=== PATIENT | female | born 1960 | race Caucasian/White ===

== ENCOUNTER 2021-03-08 07:56 | Outpatient (REF) | payer BC, SELFPAY ==
--- NOTE | ~2021-03-08 | MM_ITS ---
EXAMINATION: MM SCREENING DIGITAL BREAST TOMOSYNTHESIS, BILATERAL CLINICAL INFORMATION: Screening. Asymptomatic. Family history breast cancer, mother. The lifetime risk of breast cancer based on the Tyrer-Cuzick Model is 33%. COMPARISON: Mammography: 02/01/2020, 01/26/2019, 12/07/2017 TECHNIQUE: Digital breast tomosynthesis is performed in both the craniocaudal and mediolateral oblique views along with computer-aided detection (CAD). Synthesized 2D images are generated from the tomosynthesis. FINDINGS: The breasts are extremely dense, which lowers the sensitivity of mammography (ACR BI-RADS breast composition Category d). There are no significant masses, abnormal calcifications, or other abnormalities. Parenchymal pattern is similar to prior studies. The axilla and skin contours are unremarkable. MM/MM tomosynthesis screening BI IMPRESSION: No mammographic evidence of malignancy. ASSESSMENT: BI-RADS 1: Negative RECOMMENDATION: 1. Routine annual mammography screening. 2. The lifetime risk of breast cancer based on the Tyrer-Cuzick Model is 33%. Additional annual adjunct screening with breast MRI may be of benefit in women with a risk score of 20% or greater. This patient's information was entered into a reminder system with a target due date for their next mammogram.
== END 2021-03-08 07:57 | disposition home or self-care (01) ==
LOC: HO.MAMMO 07:56
PROVIDERS: PCP Internal Medicine; Visit Provider Obstetrics & Gynecology
DX: Z12.31 Encounter for screening mammogram for malignant neoplasm of breast (principal)
CPT/HCPCS: 77063; 77067

== ENCOUNTER 2021-09-06 08:00 | Day surgery (SDC) | payer BC, SELFPAY ==
[2021-09-02 12:49] VITALS: BMI 26.5
--- NOTE | 2021-09-05 10:10 | P.CONAN_ITS ---
Documented by User: Shaila Reddy NP 09/05/21 10:10 HPI - Anesthesia Eval Consult details Narrative: 61yo F for Colonoscopy PMFSH Past Medical History Medical History (Updated 09/02/21 @ 12:38 by Mare Childers, BASILIO) HTN (hypertension) Migraines Ulcerative colitis Surgical History Surgical History (Updated 09/02/21 @ 12:39 by Mare Childers, RN) History of Hx of colonoscopy Hx of right inguinal hernia repair Social History Social History (Updated 09/02/21 @ 12:48 by Mare Childers, RN) Do you presently have visiting nurse or other home services: No Patient Tobacco Use Status: Never used Tobacco Use of substances other than those prescribed or required for medical reasons: No Are you DNR?: No Advance Directives: No Advance Directives Information Provided: Yes Meds Allergies Allergy/AdvReac Type Severity Reaction Status Date / Time No Known Allergies Allergy Mild NONE Verified 09/02/21 12:51 Home Medications Medication Instructions Recorded Confirmed Last Taken Type amlodipine 5 mg 1 tab PO DAILY 09/02/21 09/02/21 09/06/21 History tablet calcium carbonate 1 tab PO DAILY 09/02/21 09/02/21 Unknown History 600 mg-vitamin D3 10 mcg (400 unit) tablet (Calcium 600 + D(3)) mesalamine 1,000 1 supp NC 09/02/21 09/02/21 Unknown History mg rectal BEDTIME suppository mesalamine 1.2 4 tab PO DAILY 09/02/21 09/02/21 Unknown History gram tablet,delayed release multivitamin 1 tab PO DAILY 09/02/21 09/02/21 Unknown History rizatriptan 10 mg 10 mg PO DAILY 09/02/21 09/02/21 Unknown History tablet PRN Exam Exam Date and Time: September 05, 2021 1010 Height,Weight and Vital Signs: Height 5 ft 8.25 in Weight 79.832 kg Assessment and Plan Assessment Anesthesia Assessment: Chart Reviewed Documented by User: Aden Dior MD 09/06/21 09:01 [facility] Past Medical History Medical History (Updated 09/02/21 @ 12:38 by Mare Childers, RN) HTN (hypertension) Migraines Ulcerative colitis Family History Family history of problems with anesthesia: No Surgical History Surgical History (Updated 09/02/21 @ 12:39 by Mare Childers, RN) History of Hx of colonoscopy Hx of right inguinal hernia repair History of Problems with Anesthesia: No Social History Social History (Updated 09/02/21 @ 12:48 by Mare Childers, RN) Do you presently have visiting nurse or other home services: No Patient Tobacco Use Status: Never used Tobacco Use of substances other than those prescribed or required for medical reasons: No Are you DNR?: No Advance Directives: No Advance Directives Information Provided: Yes Meds Allergies Allergy/AdvReac Type Severity Reaction Status Date / Time No Known Allergies Allergy Mild NONE Verified 09/02/21 12:51 Home Medications Medication Instructions Recorded Confirmed Last Taken Type amlodipine 5 mg 1 tab PO DAILY 09/02/21 09/02/21 09/06/21 History tablet calcium carbonate 1 tab PO DAILY 09/02/21 09/02/21 Unknown History 600 mg-vitamin D3 10 mcg (400 unit) tablet (Calcium 600 + D(3)) mesalamine 1,000 1 supp NC 09/02/21 09/02/21 Unknown History mg rectal BEDTIME suppository mesalamine 1.2 4 tab PO DAILY 09/02/21 09/02/21 Unknown History gram tablet,delayed release multivitamin 1 tab PO DAILY 09/02/21 09/02/21 Unknown History rizatriptan 10 mg 10 mg PO DAILY 09/02/21 09/02/21 Unknown History tablet PRN Exam Airway Mallampati Class: II TM Dist: >3cm Neck ROM: Full Loose/Missing/Broken Teeth: No Heart: rrr+[id number] Lungs: cta b/l Assessment and Plan Assessment Anesthesia Assessment: Anesthesia Plan Discussed Final Anesthetic Review Family History of Problems with Anesthesia: No History of Problems with Anesthesia: No NPO: Yes ASA Class: II Final Preanesthetic Review: No Changes in Pt Med Stat, Meds/Allgs Chart Reviewed, Consent Obtained/Reviewed and Anes Risks/Benef Reviewed Patient Risk: Intermediate Procedure Risk: Low Assessment/Block/Sedation in SS: Assess/Block/Sedation-SS Anesthetic Plan Anesthetic Plan: MAC: and Agree w/ Assess. and Plan Disposition: Standard PACU
[2021-09-06 08:06] VITALS: BP 144/93; PULSE 93; RESP 18; TEMP 36.1; O2SAT 98
--- NOTE | 2021-09-06 08:16 | PC.NURSE ---
pt went to bathrrom results are liquid yellow
[2021-09-06] MEDS: Lactated Ringers 1,000 ML 100 ML IVCONT (08:28)
--- NOTE | 2021-09-06 10:13 | PM.OP ---
Brief Operative Note Date of Service: 09/06/21 Pre-op diagnosis: Screening, Hx of ulcerative colitis Post-op diagnosis: other (Diverticulosis) Procedure: Colonoscopy to the cecum with biopsies Surgeon: Kodi Knapp Anesthesia: MAC Was an Warehouse Order Filler used for this Procedure?: No Estimated blood loss (mL): 3.0 Pathology: other (A. Asc. colon B. Transverse colon C. Desc. colon D. Sigmoid colon E. Rectum) Condition: stable Disposition: PACU
[2021-09-06 10:15] VITALS: BP 114/66; PULSE 79; RESP 15; TEMP 36.7; O2SAT 99
[2021-09-06 10:30] VITALS: BP 114/87; PULSE 83; RESP 16; TEMP 36.7; O2SAT 98
--- NOTE | 2021-09-06 11:06 | OP_ITS ---
SURGEON: Kodi Knapp MD INDICATIONS: The patient presents for followup of colorectal cancer screening, family history of colon cancer, and history of ulcerative colitis. Full consent was obtained from her for this, including risks of bleeding and perforation. PREOPERATIVE DIAGNOSIS: POSTOPERATIVE DIAGNOSIS: PROCEDURE PERFORMED: Colonoscopy to the cecum with multiple biopsies. ESTIMATED BLOOD LOSS: COMPLICATIONS: ANESTHESIA: Monitored anesthesia care. ASSISTANTS: SPECIMENS: PREOPERATIVE DIAGNOSES: Colorectal cancer screening, family history of colon cancer, history of ulcerative colitis. POSTOPERATIVE DIAGNOSES: Colorectal cancer screening, family history of colon cancer, history of ulcerative colitis, diverticulosis, internal hemorrhoids, rule out dysplasia. DESCRIPTION OF PROCEDURE: The patient was placed in the left lateral decubitus position. The digital rectal exam revealed no abnormalities. The Olympus video pediatric colonoscope was entered into the rectum and advanced to the cecum with the assistance of abdominal wall pressure. Once in the cecum, I did identify normal-appearing cecal pouch with appendiceal orifice and a normal-appearing ileocecal valve. The entire cecum and ileocecal valve appeared normal. There was transillumination of light deep in the right lower quadrant. The scope was slowly withdrawn assessing all mucosal surfaces carefully. Preparation was excellent. I did not visualize any sign of colitis, polyps, nor angiodysplasia. There was a mild amount of sigmoid diverticulosis. Multiple biopsies were obtained in the ascending colon, transverse colon, descending colon, sigmoid colon, and in the rectum. The rectal mucosa appeared normal both in the forward viewing and retroflexed positions. There was some small internal hemorrhoids noted. The scope was withdrawn from the patient. She tolerated the procedure well and was returned to the recovery area in stable condition. IMPRESSION: 1. History of ulcerative colitis, rule out dysplasia. 2. Diverticulosis. 3. Internal hemorrhoids. PLAN: The results of the biopsies will be checked. Assuming there is no dysplasia, I would recommend a repeat colonoscopy in 5 years. She did have a recent flare-up of her colitis, which required the resumption of her mesalamine pills and mesalamine suppository. She reports that has worked very well for her. At this point, I shall instruct her to continue the oral mesalamine, but have her stop the suppositories. She has been instructed to see me in several months for a followup visit as well. She was advised not to use any aspirin and NSAIDs for 1 week. MD UNRULY Vasques/YOSSI / [phone]
== END 2021-09-06 10:59 | disposition home or self-care (01) ==
PROVIDERS: PCP Internal Medicine; Visit Provider Internal Medicine
PROC: 0DJD8ZZ Inspection of Lower Intestinal Tract, Via Natural or Artificial Opening Endoscopic (ICD-10-PCS; CPT 45378; principal; 2021-09-06 09:00)
DX: Z12.11 Encounter for screening for malignant neoplasm of colon (principal); Z80.0 Family history of malignant neoplasm of digestive organs; Z87.19 Personal history of other diseases of the digestive system; K57.30 Diverticulosis of large intestine without perforation or abscess without bleeding; K64.8 Other hemorrhoids; I10 Essential (primary) hypertension; Z79.899 Other long term (current) drug therapy
CPT/HCPCS: 45380; 88305; J2250

== ENCOUNTER 2022-06-12 07:41 | Outpatient (REF) | payer OTHER, SELFPAY ==
--- NOTE | ~2022-06-12 | MM_ITS ---
EXAMINATION: MM SCREENING DIGITAL BREAST TOMOSYNTHESIS, BILATERAL CLINICAL INFORMATION: Screening. Asymptomatic. COMPARISON: Mammography: 03/08/2021, 02/01/2020, 01/26/2019 TECHNIQUE: Digital breast tomosynthesis is performed in both the craniocaudal and mediolateral oblique views along with computer-aided detection (CAD). Synthesized 2D images are generated from the tomosynthesis. FINDINGS: The breasts are extremely dense, which lowers the sensitivity of mammography (ACR BI-RADS breast composition Category d). There are no significant masses, abnormal calcifications, or other abnormalities. Parenchymal pattern is similar to prior studies. There is no developing density or architectural abnormality. The axilla and skin contours are unremarkable. No significant changes. MM/MM tomosynthesis screening BI IMPRESSION: No mammographic evidence of malignancy. ASSESSMENT: BI-RADS 1: Negative RECOMMENDATION: Routine annual mammography screening. This patient's information was entered into a reminder system with a target due date for their next mammogram.
== END 2022-06-12 07:42 | disposition home or self-care (01) ==
LOC: HO.MAMMO 07:41
PROVIDERS: PCP Nurse Practitioner Family; Visit Provider Nurse Practitioner Family
DX: Z12.31 Encounter for screening mammogram for malignant neoplasm of breast (principal)
CPT/HCPCS: 77063; 77067

== ENCOUNTER 2022-07-04 10:27 | Outpatient (REF) | payer OTHER, SELFPAY ==
--- NOTE | ~2022-07-04 | MM_ITS ---
EXAMINATION: MM DIAGNOSTIC DIGITAL MAMMOGRAPHY, LEFT CLINICAL INFORMATION: Recall from screening for calcifications posterior upper outer left breast, likely benign vascular. Family history breast cancer mother, grandmother. TC score 17%. COMPARISON: Mammography: 06/12/2022, 03/08/2021 TECHNIQUE: Digital mammography is performed in the following views: Magnification CC, magnification ML FINDINGS: The breasts are extremely dense, which lowers the sensitivity of mammography (ACR BI-RADS breast composition Category d). The additional magnification views confirm vascular calcification in the posterior upper outer left breast. The posterior portion of the imaged area has discontinuous calcifications, likely vascular as well. Results are discussed with the patient at time of visit. MM/MM added views LT IMPRESSION: Additional views confirm vascular calcification in the posterior upper outer left breast. The posterior aspect is discontinuous, likely vascular as well. Will be reassessed 6 months. ASSESSMENT: BI-RADS 3: Probably Benign RECOMMENDATION: Diagnostic left mammography in 6 months. This patient's information was entered into a reminder system with a target due date for their next mammogram.
== END 2022-07-04 10:28 | disposition home or self-care (01) ==
LOC: HO.MAMMO 10:27
PROVIDERS: PCP Nurse Practitioner Family; Visit Provider Nurse Practitioner Family
DX: R92.1 Mammographic calcification found on diagnostic imaging of breast (principal)
CPT/HCPCS: 77065

== ENCOUNTER 2023-01-13 13:29 | Outpatient (REF) | payer OTHER, SELFPAY ==
--- NOTE | ~2023-01-13 | MM_ITS ---
EXAMINATION: MM DIAGNOSTIC DIGITAL BREAST TOMOSYNTHESIS, LEFT CLINICAL INFORMATION: Short interval six-month follow-up probable benign vascular calcifications, posterior upper outer left breast. TC score 18%. COMPARISON: Mammography: 07/04/2022, 06/12/2022 (BI-RADS 0), 03/08/2021, 02/01/2020. TECHNIQUE: Digital breast tomosynthesis is performed in both the craniocaudal and mediolateral oblique views along with computer-aided detection (CAD). Synthesized 2D images are generated from the tomosynthesis. Additional magnification left CC and magnification left ML views are obtained. FINDINGS: The breasts are extremely dense, which lowers the sensitivity of mammography (ACR BI-RADS breast composition Category d). Parenchymal pattern is similar to prior studies and there is no significant mass or developing density or architectural abnormality. No abnormal calcifications. The axilla and skin contours are unremarkable. The calcifications for follow-up posterior upper outer left breast appears vascular. They will be reassessed again at time of annual bilateral mammography, due in 6 months. Results are provided to the patient at time of visit by the technologist. MM/MM tomosynthesis diagnostic LT IMPRESSION: -Benign-appearing vascular calcifications posterior upper outer left breast, stable. ASSESSMENT: BI-RADS 3: Probably Benign RECOMMENDATION: Magnification views left breast at time of annual bilateral mammography, due in 6 months. This patient's information was entered into a reminder system with a target due date for their next mammogram.
== END 2023-01-13 13:30 | disposition home or self-care (01) ==
LOC: HO.MAMMO 13:29
PROVIDERS: Visit Provider Nurse Practitioner Family
DX: R92.1 Mammographic calcification found on diagnostic imaging of breast (principal)
CPT/HCPCS: 77061; 77065

== ENCOUNTER 2023-07-22 12:58 | Outpatient (REF) | payer OTHER, SELFPAY ==
--- NOTE | ~2023-07-22 | MM_ITS ---
EXAMINATION: MM DIAGNOSTIC DIGITAL BREAST TOMOSYNTHESIS, BILATERAL CLINICAL INFORMATION: Six-month short interval follow-up probably benign vascular calcifications posterior upper outer left breast. COMPARISON: Mammography: 01/13/2023, 07/04/2022, 06/12/2022 (BI-RADS 0), 03/08/2021, 02/01/2020. TECHNIQUE: Digital breast tomosynthesis is performed in both the craniocaudal and mediolateral oblique views along with computer-aided detection (CAD). Synthesized 2D images are generated from the tomosynthesis. FINDINGS: The breasts are extremely dense, which lowers the sensitivity of mammography (ACR BI-RADS breast composition Category d). There is a stable somewhat serpentine extremely fine calcification in the upper outer left breast, posterior one third, unchanged from prior exams over one year. These will be assessed in one additional year to confirm benignity. Otherwise, There are no suspicious masses, suspicious grouped calcifications, or areas of architectural distortion in either breast. The parenchymal pattern is stable from prior exams. MM/MM tomosynthesis diagnostic BI IMPRESSION: There are no significant changes from prior study. Stable probably benign calcification left breast upper outer quadrant which is probably vascular. No findings suspicious for malignancy in either breast. Recommend one-year mammographic follow-up of left breast calcifications. ASSESSMENT: BI-RADS BI-RADS 3 - Probably benign finding(s) - 12 month follow-up suggested RECOMMENDATION: 12 month diagnostic follow up Results were provided to the patient at time of visit by the technologist. This patient's information was entered into a reminder system with a target due date for their next mammogram.
== END 2023-07-22 12:59 | disposition home or self-care (01) ==
LOC: HO.MAMMO 12:58
PROVIDERS: PCP Nurse Practitioner Family; Visit Provider Nurse Practitioner Family
DX: R92.1 Mammographic calcification found on diagnostic imaging of breast (principal)
CPT/HCPCS: 77062; 77066

== ENCOUNTER → 2023-07-22 13:00 | Outpatient (BNV) | payer OTHER, SELFPAY | PROVIDERS: PCP Nurse Practitioner Family; Visit Provider Radiology Diagnostic Radiology | DX: R92.1 Mammographic calcification found on diagnostic imaging of breast (principal) | CPT/HCPCS: 77062; 77066 ==

== ENCOUNTER 2024-07-25 11:27 | Outpatient (REF) | payer OTHER, SELFPAY ==
--- NOTE | ~2024-07-25 | MM_ITS ---
EXAMINATION: MM DIAGNOSTIC DIGITAL BREAST TOMOSYNTHESIS, BILATERAL CLINICAL INFORMATION: Two-year follow-up for grouped calcifications in the upper outer left breast. COMPARISON: Mammography: Comparison is made with relevant prior exams. TECHNIQUE: Digital breast mammography with tomosynthesis is performed in both the craniocaudal and mediolateral oblique views along with computer-aided detection (CAD). FINDINGS: The breasts are extremely dense, which lowers the sensitivity of mammography (ACR BI-RADS breast composition Category d). Left: Grouped faint calcifications in the upper outer breast posterior depth are not significantly changed from prior magnification views and are very faint therefore an additional 1 year follow-up is recommended for further evaluation. No suspicious masses or other abnormal findings. Right: No suspicious calcifications masses or other abnormal findings. Results are provided to the patient at time of visit by the technologist. MM/MM tomosynthesis diagnostic BI IMPRESSION: Left: Recommend 12 month follow-up with magnification views to demonstrate stability. Right: Negative. ASSESSMENT: BI-RADS BI-RADS 3 - Probably benign finding(s) - 12 month follow-up suggested RECOMMENDATION: 12 month diagnostic follow up This patient's information was entered into a reminder system with a target due date for their next mammogram. Electronically signed by: Adrienne Allen DO 07/25/2024 01:04 PM DUANE
--- OUTSIDE RECORDS SUMMARY | 2024-07-25 11:29 | XMS_ITS | Patient Health Record ---
Author Organization [facility] Address [address] [place] [address] Care Team Providers Care Refining Supervisor Name Role Phone Lilliana Bangura Primary Care Provider Unavail Reji Mendoza Unavailable [phone] Allergies No Known Allergies Reason For Referral No Information Medications Medication SIG (Take, Route, Frequency, Duration) Notes Start Date End Date Status Maxalt Not-Taking Rizatriptan Benzoate 10 MG 1 tablet Orally Once a day Active amLODIPine Besylate 5 MG 1 tablet Orally Once a day Active Social History Tobacco Use: Social History Observation Description Date Details (start date - stop date) Never Smoker NA - NA Tobacco Use/Smoking Question Answer Notes Are you a: nonsmoker Additional Findings: Tobacco Non-User Aggressive non-smoker Alcohol Screen Question Answer Notes Did you have a drink containing alcohol in the p ast year? Yes Points 0 Interpretation Negative Tobacco use other than smoking: Question Answer Notes Are you an other tobacco user? Yes Vital Signs Height 5 ft 9 in in 07/05/2024 Weight 175 lbs 07/05/2024 BMI 25.84 kg/m2 07/05/2024 Procedures Procedure Date Ordered Date Performed Result Body Sit e 23522-WTSGZRW NAIL, 1-5 07/05/2024 N/A 58537-FHJR SKIN LESIONS, OVER 4 07/05/2024 N/A [id number] DYSTROPHIC NAILS ANY # 07/05/2024 N/A Encounters Encounter Location Date Provider Diagnosis [facility] [address] [place] [address] 07/05/2024 Reji Camacho Atherosclerosis of [place] artery of both lower extremities, with unspecified presence of clinical manifestation I70.203 ; Tinea unguium B35.1 ; Pain in right toe(s) M79.674 ; Pain in left toe(s) M79.675 ; Other hammer toe(s) (acquired), right foot M20.41 ; Arthritis of joint of lesser toe, right M19.071 ; Other hammer toe(s) (acquired), left foot M20.42 and Arthritis of joint of lesser toe, left M19.072 [facility] [place] [address] [place] [address] 04/13/2024 Reji Camacho Assessments Encounter Date Diagnosis (ICD Code) Assessment Notes Treatment Notes Treatment Clinical Notes Section Notes 07/05/2024 Tinea unguium (ICD-10 - B35.1) 07/05/2024 Atherosclerosis of [place] artery of both lower extremities, with unspecified presence of clinical manifestation (ICD-10 - I70.203) Q7(A), Q8(2B), Q9(1B,2C) 07/05/2024 Pain in right toe(s) (ICD-10 - M79.674) 07/05/2024 Pain in left toe(s) (ICD-10 - M79.675) 07/05/2024 Other hammer toe(s) (acquired), right foot (ICD-10 - M20.41) 07/05/2024 Arthritis of joint of lesser toe, right (ICD-10 - M19.071) 07/05/2024 Other hammer toe(s) (acquired), left foot (ICD-10 - M20.42) 07/05/2024 Arthritis of joint of lesser toe, left (ICD-10 - M19.072) Plan Of Treatment Pending Test Test Name Order Date X ray : Foot, left 3V 05/03/2018 [id number] NAIL, 1-5 07/05/2024 [id number] NAIL, 1-5 01/01/2018 [id number] SKIN LESIONS, OVER 4 07/05/20 24 [id number] DYSTROPHIC NAILS ANY # [id number], Toes 05/03/2018 Next Appt Details Provider Name:Reji Camacho , 10/14/2024 09:00:00 AM, [address] [place], [address], Insurance Providers Payer Name Payer Address Payer Phone Subscriber Number Group Number Insured Name Patient Relationship to Insured Coverage Start Date Coverage End Date [facility] [address] [place] [address] [phone] [id number] Graciela Hood Self - patient is the insured Medical (General) History Medical History History ICD Code Arthritis Back,Hip,and Knee pain Crohns disease Headaches/Migraines High blood pressure Sciatica chronic sinusitis Mumps Measles Chicken pox covid-19 Surgical History Surgery Date(Month/Year) hernia 2007 section
--- OUTSIDE RECORDS SUMMARY | 2024-07-25 11:29 | XMS_ITS ---
Author Organization [facility] [address] Address [address] [place] [address] Care Team Providers Care Bologna Maker Name Role Phone Savanna Lilliana HUTCHINS Primary Care Provider Unavail able Reji Camacho Unavailable [phone] Allergies No Known Allergies REASON FOR VISIT At Risk Footcare, Painful Nail(s) aggravated by shoes and causing difficulty standing/walking., Painful Toe(s) Medications Medication SIG (Take, Route, Frequency, Duration) [...] Ordered Date Performed Result Body Sit e 52708-NHGKUWI NAIL, 1-5 07/05/2024 N/A 59051-QIVS SKIN LESIONS, OVER 4 07/05/2024 N/A H9624-[id number] DYSTROPHIC NAILS ANY # 07/05/2024 N/A Encounters Encounter Location Date Provider Diagnosis [facility] [place] [address] [place] [address] 07/05/2024 Reji Camacho Atherosclerosis of [place] artery of both lower extremities, with unspecified presence of clinical manifestation I70.203 ; Tinea unguium B35.1 ; Pain in right toe(s) M79.674 ; Pain in left toe(s) M79.675 ; Other hammer toe(s) (acquired), right foot M20.41 ; Arthritis of joint of lesser toe, right M19.071 ; Other hammer toe(s) (acquired), left foot M20.42 and Arthritis of joint of lesser toe, left M19.072 Assessments Encounter Date Diagnosis (ICD Code) Assessment Notes Treatment Notes Treatment Clinical Notes Section Notes 07/05/2024 Atherosclerosis of [place] artery of both lower extremities, with unspecified presence of clinical manifestation (ICD-10 - I70.203) Q7(A), Q8(2B), Q9(1B,2C) 07/05/2024 Tinea unguium (ICD-10 - B35.1) 07/05/2024 Pain in right toe(s) (ICD-10 - [...] Treatment Pending Test Test Name Order Date 56577-[id number] NAIL, 1-5 07/05/2024 55380-BYOZ SKIN LESIONS, OVER 4 07/05/20 24 J6897-HAHHZLUL DYSTROPHIC NAILS ANY # Next Appt Details Follow Up: prn, Reason: Provider Name:Reji Camacho , 10/14/2024 09:00:00 AM, [address] [place], [address], Procedure Notes * Category Sub-Category Detail Notes Keratoma Treatment Parring or Cutting o f Benign Hyperkeratotic Lesion(s) (-57) More than 4 Lesions - The Benign hyperkeratotic lesions, ( 8) in total, locations as stated and described in exam, were pared, and/or cut utilizing a sterile 15 blade, tissue nippers, and/or power dremel instrumentation - 71505, Q8 Debride Nails 1-5 Procedure: Performance of this nail treatment by a nonprofessional would put this patients foot and overall health at risk. Therefore, debridement to affected nail(s), as described in exam, was performed extensively to reduce/remove overall nail length, girth, thickness, subungual debris, and necrotic tissue, by manual and/or electrical means through the use of a nail nipper and/or dremel-type grinder watch parts, to a more viable healthy nail plate or bed tissue 5 nails or less in number. Silver nitrate was used for any petechial bleeding as necessary. Definitive antifungal treatment options, both pharmaceutical and surgical, have been reviewed and discussed with the patient. The patient solely prefers the use of intermittent/as needed professional debridement services for their nail condition and understands that additional periodic treatments may be required as necessary to maintain effective symptomatic relief - 29543 Nail Reduction Nail Reduction (-27) Trimming o f all dystrophic nails, locations as stated and described in exam, was performed to reduce/remove overall nail length and girth, by manual and electrical means with use of a nail nipper and/or dremel, to more viable healthy nail plate or bed tissue - G0127, Q8 Progress Notes * Graciela SOL ADOB: (64 yo F)Acc No.[id number]:07/05/2024 Progress Notes Patient:?NEELASUZY Graciela Zuñiga Provider:?Reji Camacho DPM :1960???Age:64 Y???Sex:Female D ate:07/05/2024 Address:[address] [place] [address] [address] [id number] Pcp:LISET Cervantes Subjective: * Chief Complaints: * ???At Risk FootcarePainful N ail(s) aggravated by shoes and causing difficulty standing/walking.Painful Toe(s) * HPI: ???At Risk footcare:?Pt States Last PCP Visit:?Date?03/15/2024 ???Toe pain:?Nature:?tenderness.?Location:?B/L feet.?Duration:?several years.?Aggravated by:?shoes, any pressure.?Treatments:?rest/alter normal daily activity, change in shoes.? * ROS:?General/Constitutional:?Nausea?denies.?Vomiting?denies.?Hunger Thirst?denies.?Loss appetite?denies.?Chills?denies.?Fatigue?denies.?Fever?denies.?Night Sweats?denies.?Unexplained weight loss?denies.?Unexplained weight gain?denies.?HEENTM:?Dentures?denies.?Dizziness?denies.?Glasses/contacts?admits.?Retinopathy?de nies.?Blurred/double vision?denies.?TMJ?denies.?Discharge/drainage?denies.?Implants?denies.?Sore throat?denies.?Dental implants?denies.?Hard of hearing ?denies.?Difficulty chewing/swallowing/speaking?denies.?Nose bleeds?denies.?Sore mouth?denies.?Respiratory:?On Oxygen?denies.?Pneumonia/pleurisy?denies.?Bronchitis?denies.?Emphysema?denies.?C oughing?denies.?Cough blood?denies.?Shortness of breath?denies.?Wheezing?denies.?Cardiovascular:?Pacemaker?denies.?MVP?denies.?WPW?denies.?CHF?denies.?Heart attack?denies.?Septal defect?denies.?Rapid beat?denies.?Chest pain ?denies.?Atrial Fib.?denies.?Murmur/Palpitations?denies.?Gastrointestinal:?Hemorrhoids?denies.?Stomach/Abdominal pain?denies.?Dark blood stool?denies.?Irritable bowel ?denies.?Constipation?denies.?Diarrhea?denies.?Hematology:?Swelling?denies.?Clots?denies.?Varicose Veins?denies.?Bruising?denies.?Bleeding problem?denies.?Genitourinary:?Blood urine?denies.?Frequent/Painfu/urination/bladder control?denies.?Kidney stones?denies.?Infection (UTI)?denies.?Nephropathy?denies.?sex trans dis (STD)?denies.?Prostate?denies.?Musculoskeletal:?Hammertoes?admits.?Bunions?denies.?Back Pain?denies.?Muscle Cramps/ Resting?denies.?Muscle cramps / walking?denies.?Generalized aches and pains?denies.?Weakness?denies.?Integ.:?Pekrins?denies.?Scars?denies.?Corns/calluses?admits.?Ingrown nails?admits.?Painful nails?admits.?Open Sores?denies.?Rashes?denies.?Neurologic:?Difficulty sleeping?denies.?Brain disorder?denies.?Numbness?denies.?Balance trouble?denies.?Confusion?denies.?Fainting/blackouts?denies.?Tingling?denies.?Tr emors?denies.? * Medical History:? * Surgical History:?hernia 200 7cesarean section * Hospitalization/Major Diagno stic Procedure:?Denies Past Hospitalization * Family History:?Mother: dece ased, kidney/liver disease, foot problems, diagnosed with Other malignant neoplasm of unspecified site, Unspecified essential hypertension, Family history of arthritis.?Father: , diagnosed with Unspecified essential hypertension, Family history of arthritis.?Maternal Grand Father: diagnosed with Unspecified heart disease.? * Social History:?Tobacco Use:?Tobacco Use/Smoking?Are you a:?nonsmoker ?Additional Findings: Tobacco Non-User?Aggressive non-smoker ?Tobacco use other than smoking?Are you an other tobacco user??Yes ???Drugs/Alcohol:?Drugs?Have you used drugs other than those for medical reasons in the past 12 months??No ?Alcohol Screen?Did you have a drink containing alcohol in the past year??Yes ?Points?0 ?Interpretation?Negative ???Miscellaneous:?Caffeine: yes, frequency:. ?Children: yes, 2. ?Marital status: . 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 * Medications:?TakingamLODIPin e Besylate 5 MG Tablet 1 tablet Orally Once a day Rizatriptan Benzoate 10 MG Tablet 1 tablet Orally Once a day Taking amLODIPine Besylate 5 MG Tablet 1 tablet Orally Once a day Taking Rizatriptan Benzoate 10 MG Tablet 1 tablet Orally Once a day Not-Taking/PRNMaxalt Medication List reviewed and reconciled with the patientNot-Taking/PRN Maxalt Medication List reviewed and reconciled with the patient * Allergies:?N.K.D.A.yes[Aller dominick Verified] Objective: * Vitals:?Ht:5 ft 9 in, Wt:175 , BMI:25.84, Shoe size:9, Ht-cm: 175.26 cm, Wt-k.38 kg. * Examination: ???Vascular: ?DP PULSES(B):?08/13, B/L.?PT PULSES(B):? 0/4, B/L.?CAPILLARY FILL TIME:? delayed, all digits, B/L.?TROPHIC CONDITION-TEXTURE/ELASTICITY/TURGOR/HAIR GROWTH(B):? decreased,?with sparse to absent hair growth, B/L.?TEMPERTURE GRADIENT(C):? decreased, cool to cool, proximal to distal, B/L.?PIGMENTATION:?rubrous, B/L.?EDEMA(C):?1/4, pitting, without aching pain, Leg(s), Ankle(s), B/L.?CLAUDICATION(C):?denies, B/L.?REST PAIN:?denies, B/L.?PARESTHESIA(C):?absent, B/L.?BURNING(C):?absent, B/L.?Nails: ?NAILS are:?Elongated, overgrown, dystrophic, lytic, greater than 3mm thick, discolored and friable with crumbly malodorous subungual debris, with pain on palpation TA,T4, T5, T9, all other nails not described with characteristics as possessing mycosis are elongated, overgrown, and dystrophic.?Dermatologic: ?SKIN FINDINGS:?Skin exam reveals Keratotic lesion(s) located at, Medial, IPJ, TA, Medial, IPJ, T5, SUB MTH (s), 1, B/L, SUB MTH (s), 5, B/L, Plantar Heel(s), B/L.?Neurological: ?SENSORY:?Neurological exam reveals intact sensorium, pain sensation normal, vibration sensation intact, pinprick sensation is normal in the lower extremities, 5.07 monofilament test performed at plantar aspects of 5 varied sites per foot shows sensation, normal, B/L, Pt denies, anesthesia, burning, paresthesia, tingling, B/L.?Orthopedic: ?MUSCLE STRENGTH:?5/5 all groups in a symmetrical fashion, B/L.?DIGITAL DEFORMITIES:?Digital contracture, PIPJ, 2-5 B/L, incompl-reducible with WB, or to push-up test, no over, nor underlapping.?FOOTWEAR:? shoe gear properties exacerbate patients foot/toe deformity.?General Examination: ?GENERAL APPEARANCE:?Reveals a pleasant, alert, well nourished, well- developed, well hydrated individual, who demonstrates proper attention to hygiene/body habitus, and is in no acute distress, Pt serves as own historian for office visit today.?ORIENTED:?person, place, and time.? Assessment: * Assessment: 1.?Tinea unguium - B35.1???2 .?Atherosclerosis of [place] artery of both lower extremities, with unspecified presence of clinical manifestation - I70.203 (Primary)???Notes :Q7(A), Q8(2B), Q9(1B,2C)???3.?Pain in right toe(s) - M79.674???4.?Pain in left toe(s) - M79.675???5.?Other hammer toe(s) (acquired), right foot - M20.41???Specify :Chronic problem, Stable (1=3,2=4)???6.?Arthritis of joint of lesser toe, right - M19.071???7. Other hammer toe(s) (acquired), left foot - M20.42???Specify :Chronic problem, Stable (1=3,2=4)???8.?Arthritis of joint of lesser toe, left - M19.072??? Plan: * Treatment: 2.?Tinea unguium?Procedure: 86752-BHXPVXF NAIL, 1-5 * Procedures:?Debride Nails 1-5:?Procedure:?Performance of this nail treatment by a nonprofessional would put this patients foot and overall health at risk. Therefore, debridement to affected nail(s), as described in exam, was performed extensively to reduce/remove overall nail length, girth, thickness, subungual debris, and necrotic tissue, by manual and/or electrical means through the use of a nail nipper and/or dremel-type grinder watch parts, to a more viable healthy nail plate or bed tissue 5 nails or less in number. Silver nitrate was used for any petechial bleeding as necessary. Definitive antifungal treatment options, both pharmaceutical and surgical, have been reviewed and discussed with the patient. The patient solely prefers the use of intermittent/as needed professional debridement services for their nail condition and understands that additional periodic treatments may be required as necessary to maintain effective symptomatic relief - 88231.?Keratoma Treatment:?Parring or Cutting of Benign Hyperkeratotic Lesion(s)?(-57) More than 4 Lesions - The Benign hyperkeratotic lesions, ( 8) in total, locations as stated and described in exam, were pared, and/or cut utilizing a sterile 15 blade, tissue nippers, and/or power dremel instrumentation - 42978, Q8.?Nail Reduction:?Nail Reduction?(-27) Trimming of all dystrophic nails, locations as stated and described in exam, was performed to reduce/remove overall nail length and girth, by manual and electrical means with use of a nail nipper and/or dremel, to more viable healthy nail plate or bed tissue - G0127, Q8.? * Procedure Codes:?G0127 DOMINIC ING DYSTROPHIC NAILS ANY #, Modifiers: XS , [id number] DEBRIDE NAIL, 1-5, Modifiers: XS 86365 TRIM SKIN LESIONS, OVER 4, Modifiers: XS , Q8 * Preventive Medicine:? ??Counseling:?Discussion:?-03: Office or other outpatient visit for the evaluation and management of a new patient, which required a medically appropriate history and/or examination and LOW level of DECISION MAKING for: 1 STABLE ACUTE UNCOMPLICATED PROBLEM, 2 OR MORE MINOR PROBLEMS, OR 1 STABLE CHRONIC PROBLEM, THAT POSE(S) A LOW RISK FOR MORBIDITY/MORTALITY. The visit on the day of the encounter encompassed interpreting the data and educating the patient as to the nature of their condition, treatment options available according to their individual PMH, meds, allergies, and overall health/living conditions, as well as any potential risks or complications that may occur from a failure to adhere to, and participate in, the recommended course of therapy. The discussion included a complete verbal, and/or written explanation of the examination results, any x-rays taken, the proposed diagnosis, and outline of the treatment plan. A schedule for future care needs was also explained. The patient verbalized an understanding of the instructions at this time and agreed to be an active participant in their treatment. If the patient should think of any questions or concerns after the visit, I have encouraged the patient to call the office.?Digital Surgery:?Digital surgery was discussed with the patient, including the risks of surgery(below), vs not having surgery (persistent pain, deformity, risk for skin ulceration/infection, loss of toe), the potential surg complications, the anesthesia, and the usual post-op course. No guarentees were given. We discussed the potential procedure complications including, but not limited to: pain, swelling, bleeding, scarring, numbness, infection, delayed/non healing, floppy/unstable/shorthened toe, recurrence, failure of the procedure, overcorrection leading to plantarflexed/downward positioned toe, recurrence, need for further surgery, as well as the possibility for loss of the toe itself. We discussed the use of local anesthesia, and the usual post-op course for healing. No guarentees were given. The patient verbally indicated a full understanding of the above conversation, and any other of their questions were answered to their satisfaction. Alternatives to the procedure were also discussed, including conservative care. I also discussed the usual post-operative course and gave no guarantees regarding outcome.?Digital Treatment:?I explained to the patient the possible etiologies of Hammertoes, including genetics/foot type/shoegear/activity level/exercise routine and the risks/benefits of all the different treatment options for pain including: No treatment at all, Rest, Ice, New/supportive/wider/deeper Shoegear, Digital Padding/Strapping/Taping/Bracing/Gel protective sleeves, Foot/Ankle AFO Bracing, Stretching exercises, Deep Tissue Massage, Arch support/shoe inserts with splay metatarsal padding, and Custom orthoses. I insisted that any digital devices be removed daily and not worn overnight for safety. The patient is to carefully examine the toes daily for any skin irritation while using any splinting or padding device. The advantages and disadvantages of each option were discussed and the patients questions re: shoegear, padding, custom vs prefabricated inserts, activity level, and consistency in home treatment regimens for optimal success were answered to their verbally confirmed satisfaction.?Shoe Gear Counseling:?The patient and I reviewed the types of shoes they should be wearing. My recommendation included obtaining a well-fitted shoe with a good supportive, non-foldable nor twistable sole, plenty of toe/room for the forefoot, and proper arch support. Based on todays examination, I recommended the patient look for new shoes, by having their feet professionally measured. We discussed that generally the best time of the day for a shoe fitting is the afternoon. Different shoes types and brands to best match the patients occupation and vocation were discussed. Specific brand selection will be up to the patient, their individual foot condition/deformities, and fit. The patient and I reviewed the standard new shoe break in period by wearing them for a few hours a day while checking for redness or sores as wear time is increased. The patient verbally confirmed to understanding the information discussed.? * Follow Up:?prn * Images: * Sign off status: Completed true * Provider:?Reji Camacho DPM Date:?2023 Generated for Tanisha river/Ileana/Miguel on:?07/25/2024 11:28 AM EST History and Physical Notes * HPI (History of Present Illness) Category Sub-Category Detail Notes Category Not es Toe pain Nature: tenderness Location: B/L feet Duration: several years Aggravated by: shoes, any pressure Treatments: rest/alter normal [place] activity, change in shoes At Risk footcare Pt States Last PCP Visit: Date: Examination Category Sub-Category Detail Notes Category Not es Neurological SENSORY: Neurological exa m reveals intact sensorium, pain sensation normal, vibration sensation intact, pinprick sensation is normal in the lower extremities, 5.07 monofilament test performed at plantar aspects of 5 varied sites per foot shows sensation, normal, B/L, Pt denies, anesthesia, burning, paresthesia, tingling, B/L Dermatologic SKIN FINDINGS: Skin exam reveal s Keratotic lesion(s) located at, Medial, IPJ, TA, Medial, IPJ, T5, SUB MTH (s), 1, B/L, SUB MTH (s), 5, B/L, Plantar Heel(s), B/L Orthopedic FOOTWEAR: shoe gear proper ties exacerbate patients foot/toe deformity DIGITAL DEFORMITIES: Digital contracture , PIPJ, 2-5 B/L, incompl-reducible with WB, or to push-up test, no over, nor underlapping MUSCLE STRENGTH: 5/5 all groups in a symmetrical fashion, B/L General Examination GENERAL APPEARANCE: Reveals a pleasant, alert, well nourished, well-developed, well hydrated individual, who demonstrates proper attention to hygiene/body habitus, and is in no acute distress, Pt serves as own historian for office visit today ORIENTED: person, place, and t mei Vascular DP PULSES(B): 1/4, B/L PT PULSES(B): 0/4, B/L CAPILLARY FILL TIME: delayed, all digits , B/L TEMPERTURE GRADIENT(C): decreased, cool to cool, proximal to distal, B/L TROPHIC CONDITION-TEXTURE/ELASTICITY/TURGOR/HAIR GROWTH(B): decreased, with sparse to absent hair gr owth, B/L EDEMA(C): 1/4, pitting, withou t aching pain, Leg(s), Ankle(s), B/L CLAUDICATION(C): denies, B/L REST PAIN: denies, B/L PIGMENTATION: rubrous, B/L PARESTHESIA(C): absent, B/L BURNING(C): absent, B/L Nails NAILS are: Elongated, overg rown, dystrophic, lytic, greater than 3mm thick, discolored and friable with crumbly malodorous subungual debris, with pain on palpation TA,T4, T5, T9, all other nails not described with characteristics as possessing mycosis are elongated, overgrown, and dystrophic
--- OUTSIDE RECORDS SUMMARY | 2024-07-25 11:29 | XMS_ITS ---
Author Organization [facility] [place] Address [address] [place] [address] Care Team Providers Care Oracle Applications Analyst Name Role Phone Lilliana Bangura Primary Care Provider Unavail able Reji Camacho Unavailable [phone] REASON FOR VISIT ON Encounters Encounter Location Date Provider Diagnosis [address] [address] 04/13/2024 Reji Camacho Plan Of Treatment Next Appt Details Provider Name:Reji Camacho , 10/14/2024 09:00:00 AM, [address] [place] [address], [phone], Progress Notes * Graciela SOL ADOB: (64 yo F)Acc No.[id number]:04/13/2024 Patient:?Graciela Sol :1960???Age:64 Y???Sex:Female Address:[address] [place] [address] * true * Date:? Generated for Maryi perico/Ileana/eTransmitting on:?07/25/2024 11:29 AM EST
--- OUTSIDE RECORDS SUMMARY | 2024-07-25 11:30 | XMS_ITS ---
Author Organization [facility] Address [address] [place] [address] Care Team Providers Care Projection Welding Machine Operator Name Role Phone Savanna Lilliana ALMANZA Primary Care Provider Kodi Rush Unavailable [phone] REASON FOR VISIT Patient presents today for colitis Encounters Encounter Location Date Provider Diagnosis [facility] [address] [place] [address] 07/07/2023 Kodi Knapp PLAN OF TREATMENT Next Appt Details Provider Name:Kodi Knapp , 11/10/2024 09:00:00 AM, [address] [facility], [address], [place], [address],
--- OUTSIDE RECORDS SUMMARY | 2024-07-25 11:30 | XMS_ITS | Patient Health Record ---
Author Organization [facility] Address [address] [place] [address] Care Team Providers Care Retail Equipment Associate Name Role Phone Savanna Lilliana ALMANZA Primary Care Provider Kodi Rush Unavailable [phone] ALLERGIES No Known Allergies REASON FOR REFERRAL No Information MEDICATIONS Medication SIG (Take, Route, Frequency, Duration) Notes Start Date End Date Status Mesalamine 1.2 GM 4 tablets with a stephanie l Orally Once a day for 30 day(s) Active Vitamin D 50 MCG (1999 UT) 1 tablet Orally Once a day for 30 day(s) Active amLODIPine Besylate 5 MG 1 tablet Orally Once a day Active Maxalt 5 MG 1 tablet as needed o ne time Orally prn Active Lialda 1.2 GM 4 Orally QD for 30 days 01/05/2017 Unknown Caltrate 600+D 600-400 MG-UNIT 1 tablet with food Orally Once a day Active Multi Vitamin/Minerals Orally Active Lialda 1.2 GM 4 Orally QD for 30 days 05/09/2015 Not-Taking IMMUNIZATIONS Vaccine Route Administration Date Status Comme nts Influenza Unknown 05/15/2021 Administered SOCIAL HISTORY Sex Assigned At : Social History Observation Description Sex Assigned At Unknown PROBLEMS Problem Type ICD Code Onset Dates Problem Status W/U Status Risk SNOMED Code Notes Problem Encounter for screening for malignant neoplasm of colon (Z12.11) Active confirmed 544439481 Problem Ulcerative rectosigmoiditis without complication (K51.30) Active confirmed 00327631 Problem Diarrhea, unspecified type (R19.7) Active confirmed 37716587 Problem Chronic ulcerative rectosigmoiditis without complications (K51.30) Active confirmed Chronic ulcerat caity rectosigmoiditis (51461329) Problem Chronic ulcerative rectosigmoiditis with rectal bleeding (K51.311) Active confirmed 03706009 VITAL SIGNS Blood pressure diastolic 00 mm Hg 11/10/2023 Height 68.25 in 11/10/2023 Blood pressure systolic 00 mm Hg 11/10/2023 Weight 172 lbs 11/10/2023 BMI 25.96 kg/m2 11/10/2023 Encounters Encounter Location Date Provider Diagnosis [facility] [address] [place] [address] 11/10/2023 Kodi Knapp Chronic ulcerative rectosigmoiditis with rectal bleeding K51.311 ASSESSMENTS Encounter Date Diagnosis Assessment Notes Treatment Notes Treatment Clinical Notes 11/10/2023 Chronic ulcerative rectosigmoiditis with rectal bleeding (ICD-10 - K51.311) Use the 1 or 2 mesalamine daily Repeat colonoscopy in 2026 PLAN OF TREATMENT Pending Test Test Name Order Date CHEM 7 PROFILE 07/29/2021 LIVER PROFILE 07/29/2021 CRP 07/29/2021 CBC w DIFF 07/29/2021 SED RATE (ESR) 07/29/2021 CULTURE, STOOL 07/29/2021 STOOL WBC 07/29/2021 C DIFFICILE RFLX PCR 07/29/2021 Giardia Ag Stool EIA 07/29/2021 Ova and Parasite 07/29/2021 Future Test Test Name Order Date COLONOSCOPY 05/09/2015 COLONOSCOPY 05/29/2021 Next Appt Details Provider Name:Kodi Knapp , 11/10/2024 09:00:00 AM, [address], [address], [place], [address], Insurance Providers Payer Name Payer Address Payer Phone Subscriber Number Group Number Insured Name Patient Relationship to Insured Coverage Start Date Coverage End Date [facility] [address] [place] [phone] [id number] YESSICA SOL Self - patient is the insured MEDICAL (GENERAL) HISTORY Medical History History ICD Code Screening Colonoscopies in and 2008--neg. for colitis, dysplasia, nor polyps Ulcerative colitis--distal s igmoid and rectum-diagnosed in 1992-treated with oral and topical mesalamines; colonoscopy May of 2016--negative for active colitis and polyps, and all biopsies were negative for dysplasia. She had a brief flareup of the colitis in July of 2021 which responded quickly to mesalamine suppositories and some Lialda. She stopped both of those within about 2 or 3 months after that. Hypertension Denies MS,DM,CVA,Lung disease,renal dise ase Migraines-uses Maxalt prn Colonoscopy in August did not reveal any sign of active colitis nor polyps. All biopsies were negative for dysplasia. Surgical History Surgery Date(Month/Year) Hernia surgery-right inguinal x 2
--- OUTSIDE RECORDS SUMMARY | 2024-07-25 11:30 | XMS_ITS ---
Author Organization [facility] Address [address] [place] [address] Care Team Providers Care Lead Accountant Name Role Phone Savanna Lilliana ALMANZA Primary Care Provider Kodi Rush [phone] ALLERGIES No Known Allergies REASON FOR VISIT Patient presents today for colitis MEDICATIONS Medication SIG (Take, Route, Frequency, Duration) Notes Start Date End Date Status amLODIPine Besylate 5 MG 1 tablet Orally Once a day Active Maxalt 5 MG 1 tablet as needed o ne time Orally prn Active Caltrate 600+D 600-400 MG-UNIT 1 tablet with food Orally Once a day Active Multi Vitamin/Minerals Orally Active Lialda 1.2 GM 4 Orally QD for 30 days 05/09/2015 Not-Taking Mesalamine 1.2 GM 4 tablets with a stephanie l Orally Once a day for 30 day(s) Active Vitamin D 50 MCG (2000 UT) 1 tablet Orally Once a day for 30 day(s) Active Lialda 1.2 GM 4 Orally QD for 30 days 01/05/2017 Unknown VITAL SIGNS BMI 25.96 kg/m2 11/10/2023 Blood pressure systolic 00 mm Hg 11/10/19 24 Blood pressure diastolic 00 mm Hg 024 Height 68.25 in 11/10/2023 Weight 172 lbs 11/10/2023 Encounters Encounter Location Date Provider Diagnosis [facility] [address] [place] [address] 11/10/2023 Kodi Knapp Chronic ulcerative rectosigmoiditis with rectal bleeding K51.311 ASSESSMENTS Encounter Date Diagnosis Assessment Notes Treatment Notes Treatment Clinical Notes 11/10/2023 Chronic ulcerative rectosigmoiditis with rectal bleeding (ICD-10 - K51.311) Use the 1 or 2 mesalamine daily Repeat colonoscopy in 2026 PLAN OF TREATMENT Medication Medication Name Sig Start Date Stop Date Notes Mesalamine 1.2 GM 4 tablets with a stephanie l Orally Once a day for 30 day(s) Treatment Notes Assessment Notes Chronic ulcerative rectosigm oiditis with rectal bleeding Use the 1 or 2 mesalamine daily Repeat colonoscopy in 2026 Next Appt Details Follow Up: 1 Year, Reason: Provider Name:Kodi Knapp , 11/10/2024 09:00:00 AM, [address] [facility], [address], [place], [address], Progress Notes * Examination Category Sub-Category Detail Notes General Examination GENERAL APPEARANCE: pleasant , well nourished, well developed, in no acute distress HEAD: EYES: sclera non-icteric EARS: NOSE: THROAT: NECK/THYROID: no cervical lymphade nopathy, neck supple HEART: S1, S2 normal CHEST: LUNGS: clear to auscultatio n bilaterally ABDOMEN: normal bowel sounds, no guarding or rigidity, no guarding or rigidity, no masses palpable, soft, nontender, nondistended NEUROLOGIC: alert and oriented SKIN: nonjaundiced, no spi blaine angiomata EXTREMITIES: no edema PERIPHERAL PULSES: BACK: BREASTS: MUSCULOSKELETAL: MALE GENITOURINARY: LYMPH NODES: RECTAL EXAM: FEMALE GENITOURINARY: ORAL CAVITY: mucosa moist
== END 2024-07-25 11:28 | disposition home or self-care (01) ==
LOC: HO.MAMMO 11:27
PROVIDERS: PCP Nurse Practitioner Family; Visit Provider Nurse Practitioner Family
DX: R92.8 Other abnormal and inconclusive findings on diagnostic imaging of breast (principal)
CPT/HCPCS: 77062; 77066

== ENCOUNTER → 2024-07-25 11:30 | Outpatient (BNV) | payer OTHER, SELFPAY | PROVIDERS: PCP Nurse Practitioner Family; Visit Provider Internal Medicine | DX: R92.0 Mammographic microcalcification found on diagnostic imaging of breast (principal); R92.343 Mammographic extreme density, bilateral breasts | CPT/HCPCS: 77062; 77066 ==

== ENCOUNTER 2025-05-08 09:59 | Outpatient (REF) | payer OTHER, SELFPAY ==
--- OUTSIDE RECORDS SUMMARY | 2025-01-17 05:00 | XMS_ITS ---
Author Organization [facility] [place] Address [address] [place] [address] Care Team Providers Care Mma Fighter Name Role Phone Lilliana Corrales Primary Care Provider Unavailabl Reji Stapleton Unavailable [phone] Encounters Encounter Location Date Provider Diagnosis [address] [address] 01/17/2025 Reji Camacho Plan Of Treatment Next Appt Details Provider Name:Reji Camacho , 05/09/2025 08:45:00 AM, [address] [place] [address], [address], Progress Notes * Graciela SOL ADOB: (65 yo F)Acc No.[id number]:01/17/2025 Progress Note Patient: Graciela LEONARDO Provider: Hawa Camacho DPM :1960 A ge:64 Y S ex:Female Date:01/17/2025 Address:[address] [place], [place] [id number] Pcp:Lilliana Corrales Subjective: * Chief Complaints: * [...] DPM Date: 0 01/17/2025 Generated for Tanisha river/Ileana/Miguel on: 0 05/08/2025 10:57 AM EDT
--- OUTSIDE RECORDS SUMMARY | 2025-05-08 10:57 | XMS_ITS | Patient Health Record ---
Author Organization [facility] [place] Address [address] [place] [address] Care Team Providers Care Extractor Operator Solvent Process Name Role Phone Lilliana Corrales Primary Care Provider Reji Farfan Unavailable [phone] Allergies No Known Allergies Reason For Referral No Information Medications Medication SIG (Take, Route, Frequency, Duration) Notes Start Date End Date Status Maxalt Not-Taking Rizatriptan Benzoate 10 MG 1 tablet Orally Once a day Active amLODIPine Besylate 5 MG 1 tablet Orally Once a day Active Immunizations Vaccine Route Administration Date Status Comme nts Influenza Unknown 01/24/2025 Refused Social History Tobacco Use: Social History Observation Description Date Details (start date - stop date) Never Smoker NA - NA Tobacco use other than smoking: Question Answer Notes Are you an other tobacco user? No Tobacco Control (Standard) Question Answer Notes Tobacco use: Nonsmoker Additional Findings: Tobacco non-user Current no nsmoker AUDIT-C (Standard) Question Answer Notes Did you have a drink containing alcohol in the p ast year? No Points 0 Interpretation Negative Problems Problem Type SNOMED Code ICD Code Onset Dates Problem Status W/U Status Risk Notes Problem Neuropathy (100792740) Neuropathy (G62.9) Active confirmed Problem Bilateral atherosclerosis of arteries of lower limbs (disorder) (94931918842616340 ) Atherosclerosis of artery of both lower extremities (I70.203) Active confirmed Q7(A), Q8(2B), Q9(1B,2 C) Vital Signs Blood pressure diastolic 65 mm Hg 01/24/2025 Height 5ft9in in 01/24/2025 Blood pressure systolic 128 mm Hg 01/24/2025 Weight 175 lbs 01/24/2025 BMI 25.84 kg/m2 01/24/2025 Procedures Procedure Date Ordered Date Performed Result Body Sit e 57935-PZTDJFE NAIL, 1-5 07/05/2024 N/A 89486-UBBL SKIN LESIONS, OVER 4 07/05/2024 N/A D8992-KXQNUGLG DYSTROPHIC NAILS ANY # 07/05/2024 N/A 48646-IEXKMYG NAIL, 1-5 10/14/2024 N/A 70394-QYYJ SKIN LESIONS, OVER 4 10/14/2024 N/A S8820-FYJEKRAJ DYSTROPHIC NAILS ANY # 10/14/2024 N/A 14501-SGFTRGR NAIL, 1-5 01/24/2025 N/A 45649-BZDX SKIN LESIONS, OVER 4 01/24/2025 N/A T9150-TCYAGRHG DYSTROPHIC NAILS ANY # 01/24/2025 N/A Encounters Encounter Location Date Provider Diagnosis [address] [address] 07/05/2024 Reji Camacho Atherosclerosis of [place] artery of both lower extremities, with unspecified presence of clinical manifestation I70.203 ; Tinea unguium B35.1 ; Pain in right toe(s) M79.674 ; Pain in left toe(s) M79.675 ; Other hammer toe(s) (acquired), right foot M20.41 ; Arthritis of joint of lesser toe, right M19.071 ; Other hammer toe(s) (acquired), left foot M20.42 and Arthritis of joint of lesser toe, left M19.[address] [address] 10/14/2024 Reji Camacho Atherosclerosis of artery of both lower extremities I70.203 ; Tinea unguium B35.1 ; Pain in right toe(s) M79.674 ; Pain in left toe(s) M79.675 ; Neuritis M79.2 ; Neuropathy G62.9 ; Left foot pain M79.672 ; Right foot pain M79.671 and Neurapraxia of lower extremity S84.90[facility] [address] 01/24/2025 Reji Camacho Tinea unguium B35.1 ; Atherosclerosis of artery of both lower extremities I70.203 ; Pain in right toe(s) M79.674 and Pain in left toe(s) M79.[address] [facility] [address] 10/14/2024 Reji Camacho [facility] [address] [address] 01/13/2025 Reji Camacho Assessments Encounter Date Diagnosis (ICD Code) Assessment Notes Treatment Notes Treatment Clinical Notes Section Notes 07/05/2024 Tinea unguium (ICD-10 - B35.1) 07/05/2024 Atherosclerosis of [place] artery of both lower extremities, with unspecified presence of clinical manifestation (ICD-10 - I70.203) Q7(A), Q8(2B), Q9(1B,2C) 10/14/2024 Tinea unguium (ICD-10 - B35.1) 10/14/2024 Atherosclerosis of artery of both lower extremities (ICD-10 - I70.203) Q7(A), Q8(2B), Q9(1B,2C) 01/24/2025 Tinea unguium (ICD-10 - B35.1) 01/24/2025 Atherosclerosis of artery of both lower extremities (ICD-10 - I70.203) Q7(A), Q8(2B), Q9(1B,2C) 01/24/2025 Pain in right toe(s) (ICD-10 - M79.674) 10/14/2024 Pain in right toe(s) (ICD-10 - M79.674) 07/05/2024 Pain in right toe(s) (ICD-10 - M79.674) 07/05/2024 Pain in left toe(s) (ICD-10 - M79.675) 10/14/2024 Pain in left toe(s) (ICD-10 - M79.675) 01/24/2025 Pain in left toe(s) (ICD-10 - M79.675) 10/14/2024 Neuritis (ICD-10 - M79.2) 07/05/2024 Other hammer toe(s) (acquired), right foot (ICD-10 - M20.41) 10/14/2024 Neuropathy (ICD-10 - G62.9) 07/05/2024 Arthritis of joint of lesser toe, right (ICD-10 - M19.071) 10/14/2024 Left foot pain (ICD-10 - M79.672) 07/05/2024 Other hammer toe(s) (acquired), left foot (ICD-10 - M20.42) 10/14/2024 Right foot pain (ICD-10 - M79.671) 07/05/2024 Arthritis of joint of lesser toe, left (ICD-10 - M19.072) 10/14/2024 Neurapraxia of lower extremity (ICD-10 - S84.90XA) Plan Of Treatment Pending Test Test Name Order Date X ray : Foot, left 3V 05/03/2018 93473-ELVBZKL NAIL, 1-5 07/05/2024 73251-OFOTFOK NAIL, 1-5 01/01/2018 52480-OTMTKYX NAIL, 1-5 10/14/2024 55393-RCTIQPT NAIL, 1-5 01/24/2025 62091-MWVJ SKIN LESIONS, OVER 4 01/25/20 25 33469-STVV SKIN LESIONS, OVER 4 10/15/19 25 01456-FKCS SKIN LESIONS, OVER 4 07/05/20 24 C5076-TJVVDDJF DYSTROPHIC NAILS ANY # N0790-DOBJPDYC DYSTROPHIC NAILS ANY # L6672-AHNPAQAZ DYSTROPHIC NAILS ANY # 61538-Hysnshlxm, Toes 05/03/2018 Next Appt Details Provider Name:Reji Camacho , 05/09/2025 08:45:00 AM, [address] [facility], [place], [address], Insurance Providers Payer Name Payer Address Payer Phone Subscriber Number Group Number Insured Name Patient Relationship to Insured Coverage Start Date Coverage End Date [facility] [address] [place] [address] [id number] Graciela Hood Self - patient is the insured Medical (General) History Medical History History ICD Code Arthritis Back,Hip,and Knee pain Crohns disease Headaches/Migraines High blood pressure Sciatica chronic sinusitis Mumps Measles Chicken pox covid-19 Surgical History Surgery Date(Month/Year) hernia 2007 section
--- OUTSIDE RECORDS SUMMARY | 2025-05-08 10:58 | XMS_ITS | Patient Health Record ---
Author Organization [facility] Address [address] [place] [address] Care Team Providers Care Paper Machine Supervisor Name Role Phone Savanna Lilliana ALMANZA Primary Care Provider Kodi Rush Unavailable [phone] Allergies No Known Allergies Reason For Referral No Information Medications Medication SIG (Take, Route, Frequency, Duration) Notes Start Date End Date Status Lialda 1.2 GM 4 Orally QD for 30 days 01/05/2017 Unknown Estradiol Active Vitamin D 50 MCG (2000 UT) 1 tablet Orally Once a day for 30 day(s) Active Vitamin C 500 MG as directed Orally Active Mesalamine 1000 MG 1 suppository at bed time Rectal Every night at bedtime for 30 day(s) 02/15/2022 Active Maxalt 5 MG 1 tablet as needed o ne time Orally prn Active amLODIPine Besylate 5 MG 1 tablet Orally Once a day Active Multi Vitamin/Minerals Orally Active Mesalamine 1.2 GM 4 tablets with a stephanie l Orally Once a day for 30 day(s) Active Caltrate 600+D 600-400 MG-UNIT 1 tablet with food Orally Once a day Active Immunizations Vaccine Route Administration Date Status Comme nts Influenza Unknown 05/15/2021 Administered Problems Problem Type SNOMED Code ICD Code Onset Dates Problem Status W/U Status Risk Notes Problem 588263833 Encounter for screening for malignant neoplasm of colon (Z12.11) Active confirmed Problem Diarrhea (33193723) Diarrhea (R19.7) Active con firmed Problem 59709150 Ulcerative rectosigmoiditis without complication (K51.30) Active confirmed Problem 90920561 Diarrhea, unspecified type (R19.7) Active confirmed Problem Chronic ulcerative rectosigmoiditis (94208041) Chronic ulcerative rectosigmoiditis without complications (K51.30) Active confirmed Problem 90473424 Chronic ulcerati ve rectosigmoiditis with rectal bleeding (K51.311) Active confirmed Vital Signs Blood pressure diastolic 11 mm Hg 11/10/2024 Height 68.25 in 11/10/2024 Blood pressure systolic 111 mm Hg 11/10/2024 Weight 174 lbs 11/10/2024 BMI 26.26 kg/m2 11/10/2024 Encounters Encounter Location Date Provider Diagnosis [facility] [address] [place] [address] 11/10/2024 Kodi Knapp Ulcerative rectosigmoiditis without complication K51.30 and Encounter for screening for malignant neoplasm of colon Z12.11 [facility] [address] [place] [address] 05/01/2025 Kodi Knapp Diarrhea R19.7 and Ulcerative rectosigmoiditis without complication K51.30 Assessments Encounter Date Diagnosis (ICD Code) Assessment Notes Treatment Notes Treatment Clinical Notes Section Notes 11/10/2024 Ulcerative rectosigmoiditis without complication (ICD-10 - K51.30) Overall, Migdalia appears quite well. At this point she remains inclined not to use any medication for the ulcerative colitis. I did advise her to certainly observe things and call me if things worsen in regard to the underlying colitis. However, if things remain stable I will plan to see her in the fall such that we can then schedule her follow-up colonoscopy for the early part of 2026. However, I did advise her to certainly call prior to that if she has any problems or questions I can be of assistance with. Migdalia was very comfortable with this plan. Thank you again for allowing me to participate in Migdalia's care. I shall continue to keep you advised of her progress. 05/01/2025 Diarrhea (ICD-10 - R19.7) 05/01/2025 Ulcerative rectosigmoiditis without complication (ICD-10 - K51.30) 11/10/2024 Encounter for screening for malignant neoplasm of colon (ICD-10 - Z12.11) Overall, Migdalia appears quite well. At this point she remains inclined not to use any medication for the ulcerative colitis. I did advise her to certainly observe things and call me if things worsen in regard to the underlying colitis. However, if things remain stable I will plan to see her in the Fall 2025 such that we can then schedule her follow-up colonoscopy for the early part of 2026. However, I did advise her to certainly call prior to that if she has any problems or questions I can be of assistance with. Migdalia was very comfortable with this plan. Thank you again for allowing me to participate in Migdalia's care. I shall continue to keep you advised of her progress. 11/10/2024 Other We'll schedule a colonoscopy for 2026 when I see you in 2025. Overall, Migdalia appears quite well. At this point she remains inclined not to use any medication for the ulcerative colitis. I did advise her to certainly observe things and call me if things worsen in regard to the underlying colitis. However, if things remain stable I will plan to see her in the fall such that we can then schedule her follow-up colonoscopy for the early part of 2026. However, I did advise her to certainly call prior to that if she has any problems or questions I can be of assistance with. Migdalia was very comfortable with this plan. Thank you again for allowing me to participate in Migdalia's care. I shall continue to keep you advised of her progress. Plan Of Treatment Pending Test Test Name Order Date CHEM 7 PROFILE 07/29/2021 LIVER PROFILE 07/29/2021 CRP 07/29/2021 CBC w DIFF 07/29/2021 SED RATE (ESR) 07/29/2021 CULTURE, STOOL 07/29/2021 STOOL WBC 07/29/2021 C DIFFICILE RFLX PCR 05/01/2025 C DIFFICILE RFLX PCR 07/29/2021 Giardia Ag Stool EIA 07/29/2021 Calprotectin, Fecal 05/01/2025 Ova and Parasite 07/29/2021 GI PANEL 05/01/2025 Future Test Test Name Order Date COLONOSCOPY 05/09/2015 COLONOSCOPY 05/29/2021 Next Appt Details Provider Name:Kodi Dalton Aria , 05/15/2026 09:10:00 AM, [address] [place] [address], [address], [place], [address], Insurance Providers Payer Name Payer Address Payer Phone Subscriber Number Group Number Insured Name Patient Relationship to Insured Coverage Start Date Coverage End Date [facility] [address] [place] [phone] [id number] YESSICA SOL Self - patient is the insured Medical (General) History Medical History History ICD Code Screening Colonoscopies in and 2008--neg. for colitis, dysplasia, nor polyps Ulcerative colitis--distal s igmoid and rectum-diagnosed in 1992-treated with oral and topical mesalamines; colonoscopy December of 2015--negative for active colitis and polyps, and all biopsies were negative for dysplasia. She had a brief flareup of the colitis in July of 2021 which responded quickly to mesalamine suppositories and some Lialda. She stopped both of those within about 2 or 3 months after that. Hypertension Denies AK,DM,CVA,Lung disease,renal dise ase Migraines-uses Maxalt prn Colonoscopy in August did not reveal any sign of active colitis nor polyps. All biopsies were negative for dysplasia. Surgical History Surgery Date(Month/Year) x 2 Hernia surgery-right inguinal
[2025-05-08 13:00] LABS: CDiff Gene PCR NEGATIVE (Negative)
[2025-05-12 17:57] LABS: Calprotectin, Fecal 501 mcg/g
== END 2025-05-08 10:00 | disposition home or self-care (01) ==
LOC: HO.LAB 09:59
PROVIDERS: Visit Provider Internal Medicine
DX: K51.30 Ulcerative (chronic) rectosigmoiditis without complications (principal); R19.7 Diarrhea, unspecified
CPT/HCPCS: 83993; 87493; 87507

== ENCOUNTER 2025-07-27 11:00 | Outpatient (REF) | payer OTHER, SELFPAY ==
--- OUTSIDE RECORDS SUMMARY | 2025-01-17 04:00 | XMS_ITS ---
Author Organization [facility] [place] Address [address] [place] [address] Care Team Providers Care Flitch Hanger Name Role Phone Lilliana Corrales Primary Care Provider Unavailabl Reji Stapleton Unavailable [phone] Encounters Encounter Location Date Provider Diagnosis [address] [address] 01/17/2025 Reji Camacho Plan Of Treatment Next Appt Details Provider Name:Reji Camacho , 08/29/2025 10:00:00 AM, [address] [address], [address], Progress Notes * Graciela SOL ADOB: (65 yo F)Acc No.[id number]:01/17/2025 Progress Note Patient: Graciela LEONARDO Provider: Hawa Camacho DPM :1960 A ge:64 Y S ex:Female Date:01/17/2025 Address:[address] [place], [place] [id number] Pcp:Lilliana Corrales Subjective: * Chief Complaints: * * Medical History: Objective: * Vitals: Assessment: Plan: * Treatment: * Images: * The named appointment provid er may or may not be the originator of this progress note, and it is not deemed complete until electronically signed by the appointment provider. Sign off status: Pending * Provider: Hawa Camacho DPM Date: 0 01/17/2025 Generated for Tanisha river/Carmella on: 1 09/27/2024 02:20 PM EST
--- NOTE | ~2025-07-27 | MM_ITS ---
EXAMINATION: MM DIAGNOSTIC DIGITAL BREAST TOMOSYNTHESIS, BILATERAL CLINICAL INFORMATION: 3 year follow-up for calcifications in the upper outer left breast. COMPARISON: Mammography: Comparison is made with relevant prior exams. TECHNIQUE: Digital breast mammography with tomosynthesis is performed in both the craniocaudal and mediolateral oblique views along with computer-aided detection (CAD). FINDINGS: The breasts are extremely dense, which lowers the sensitivity of mammography. Grouped faint probable vascular calcifications in the upper outer left breast posterior depth are not significantly changed from prior magnification views dating back for 3 years and therefore benign. There are no significant masses, abnormal calcifications, or other abnormalities. Results are provided to the patient at time of visit by the technologist. MM/MM tomosynthesis diagnostic BI IMPRESSION: No mammographic evidence of malignancy. ASSESSMENT: BI-RADS Category 2: Benign RECOMMENDATION: 1 year F/U This patient's information was entered into a reminder system with a target due date for their next mammogram. Electronically signed by: Adrienne Allen DO 07/27/2025 11:47 AM DUANE
--- OUTSIDE RECORDS SUMMARY | 2025-07-27 14:21 | XMS_ITS | Patient Health Record ---
Author Organization [facility] Address [address] [place] [address] Care Team Providers Care Supervisor Blasting Name Role Phone Savanna ARCHIE Lilliana Primary Care Provider Kodi Rush Unavailable [phone] Allergies No Known Allergies Results Component Value Reference Range Flag Notes CDiff Gene PCR Reviewed date:05/13/2025 11:19:54 PM Interpretation: Performing Lab:[facility], [address] [place] [phone] Notes/Report: CDiff Gene PCR NEGATIVE Negative If C. difficile strongly suspected despite one negative test, a second test may be sent vs. empiric treatment for C. difficile infection. Calprotectin, Fecal (Not yet reviewed by provider) Interpretation: Performing Lab:[facility], [address] [place] [phone] Notes/Report: Calprotectin, Fecal 501 A Reference Range: <50 Normal 50-120 Borderline >120 Elevated Calprotectin in Crohn's disease and ulcerative colitis can be five to several thousand times above the reference population (50 mcg/g or less). Levels are usually 50 mcg/g or less in healthy patients and with irritable bowel syndrome. Repeat testing in 4-6 weeks is suggested for borderline values. THIS TEST WAS PERFORMED AT: [employer] [facility] [address] [place] [address] NINO MARSH MD,PHD,ISAK Reason For Referral No Information Medications Medication SIG (Take, Route, Frequency, Duration) Notes Start Date End Date Status Carmen 1.2 GM Tablet Delayed Release 4 Orally QD; Duration: 30 days 01/05/2017 Unknown Estradiol Active Vitamin D 50 MCG (2000 UT) Tablet 1 tablet Orally Once a day; Duration: 30 day(s) Active Vitamin C 500 MG Capsule as directed Orally Active Mesalamine 1000 MG Suppository 1 suppository at bedtime Rectal Every night at bedtime; Duration: 30 day(s) 02/15/2022 Active Maxalt 5 MG Tablet 1 tablet as needed o ne time Orally prn Active amLODIPine Besylate 5 MG Tablet 1 tablet Orally Once a day Active Multi Vitamin/Minerals Tablet Orally Active Mesalamine 1.2 GM Tablet Delayed Release 4 tablets with a meal Orally Once a day; Duration: 30 day(s) Active Caltrate 600+D 600-400 MG-UNIT Tablet 1 tablet with food Orally Once a day Active Immunizations Vaccine Route Administration Date Status Comme nts Influenza Unknown 05/15/2021 Administered Social History Social History Additional Details Category Social Info Options Details Miscellaneous: Marital status: New since last visit: 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: Nnsmoker; no sig alcohol Nnsmoker; no sig alcohol Nnsmoker; no sig alcohol Nonsmoker; no sig alcohol Nonsmoker; no sig alcohol Nonsmoker; no sig alcohol Nonsmoker; no sig alcohol Problems Problem Type SNOMED Code ICD Code Onset Dates Problem Status W/U Status Risk Notes Problem Screening for malignant neoplasm of colon (410519105) Encounter for screening for malignant neoplasm of colon (Z12.11) Active confirmed Problem Diarrhea (10212925) Diarrhea (R19.7) Active con firmed Problem Chronic ulcerative rectosigmoiditis (47556682) Ulcerative rectosigmoiditis without complication (K51.30) Active confirmed Problem Diarrhea (28603180) Diarrhea, unspecified type (R19.7) Active confirmed Problem Chronic ulcerative rectosigmoiditis (31502297) Chronic ulcerative rectosigmoiditis without complications (K51.30) Active confirmed Problem Chronic ulcerative rectosigmoiditis (84605571) Chronic ulcerative rectosigmoiditis with rectal bleeding (K51.311) Active confirmed Vital Signs Blood pressure diastolic 11 mm Hg 11/10/2024 Height 68.25 in 11/10/2024 Blood pressure systolic 111 mm Hg 11/10/2024 Weight 174 lbs 11/10/2024 BMI 26.26 kg/m2 11/10/2024 Encounters Encounter Location Date Provider Diagnosis [facility] [address] [place] [address] 11/10/2024 Kodi Knapp Ulcerative rectosigmoiditis without complication K51.30 and Encounter for screening for malignant neoplasm of colon Z12.11 [facility] [address] [place] [address] 05/01/2025 Kodi Knapp Diarrhea R19.7 and Ulcerative rectosigmoiditis without complication K51.30 [facility] [address] [place] [address] 05/08/2025 Kodi Knapp [facility] [address] [place] [address] 06/20/2025 Kodi Knapp Assessments Encounter Date Diagnosis (ICD Code) Assessment Notes Treatment Notes Treatment Clinical Notes Section Notes 05/01/2025 Diarrhea (ICD-10 - R19.7) 05/01/2025 Ulcerative rectosigmoiditis without complication (ICD-10 - K51.30) 11/10/2024 Ulcerative rectosigmoiditis without complication (ICD-10 - [...] keep you advised of her progress. 11/10/2024 Encounter for screening for malignant neoplasm [...] Name:Kodi Dalton Aria , 05/15/2026 09:10:00 AM, [address] [place] [address], [address], [place], [address], Insurance Providers Payer Name Payer Address Payer Phone Subscriber Number Group Number Insured Name Patient Relationship to Insured Coverage Start Date Coverage End Date [facility] [address] [place] [address] [id number] EBENEZERYESSICA Self - patient is the insured Medical [...] or 3 months after that. Hypertension Denies MT,DM,CVA,Lung disease,renal dise ase Migraines-uses Maxalt prn Colonoscopy in August did not reveal any sign of active colitis nor polyps. All biopsies were negative for dysplasia. Surgical History Surgery Date(Month/Year) Hernia surgery-right inguinal x 2
--- OUTSIDE RECORDS SUMMARY | 2025-07-27 14:21 | XMS_ITS | Patient Health Record ---
Author Organization [facility] Address [address] [place] [address] Care Team Providers Care Sample Shoe Inspector And Reworker Name Role Phone Lilliana Corrales Primary Care Provider Reji Farfan Unavailable [phone] Allergies No Known Allergies Reason For Referral No Information Medications Medication SIG (Take, Route, Frequency, Duration) Notes Start Date End Date Status Maxalt Not-Taking Rizatriptan Benzoate 10 MG 1 tablet Orally Once a day PRN Active amLODIPine Besylate 5 MG 1 tablet Orally Once a day Active Losartan Potassium-HCTZ 50-12.5 MG 1 tablet Orally Once a day [...] Status W/U Status Risk Notes Problem Neuropathy (405892747) Neuropathy (G62.9) Active confirmed Problem Bilateral atherosclerosis of arteries of lower limbs (disorder) (30588898731160535 ) Atherosclerosis of artery of both lower extremities (I70.203) Active confirmed Q7(A), Q8(2B), Q9(1B,2 C) Vital Signs Blood pressure diastolic 65 mm Hg 05/09/2025 Height 5ft 9in in 05/09/2025 Blood pressure systolic 128 mm Hg 05/09/2025 Weight 175 lbs 05/09/2025 BMI 25.84 kg/m2 05/09/2025 Procedures Procedure Date Ordered Date Performed Result Body Sit e 25975-WAVKLGE NAIL, 1-5 10/14/2024 N/A 54241-QSIL SKIN LESIONS, OVER 4 10/14/2024 N/A S2410-VKJWPPMW DYSTROPHIC NAILS ANY # 10/14/2024 N/A 03656-YNAIHNM NAIL, 1-5 01/24/2025 N/A 27874-GWWH SKIN LESIONS, OVER 4 01/24/2025 N/A D3521-KRLZDKHP DYSTROPHIC NAILS ANY # 01/24/2025 N/A 30669-IWSEXEN NAIL, 1-5 05/09/2025 N/A 97963-XNLK SKIN LESIONS, OVER 4 05/09/2025 N/A N7325-UJRGAKLZ DYSTROPHIC NAILS ANY # 05/09/2025 N/A Encounters Encounter Location Date Provider Diagnosis [address] [address] 10/14/2024 Reji Wileyunier Atherosclerosis of artery of both lower extremities I70.203 ; Tinea unguium B35.1 ; Pain in right toe(s) M79.674 ; Pain in left toe(s) M79.675 ; Neuritis M79.2 ; Neuropathy G62.9 ; Left foot pain M79.672 ; Right foot pain M79.671 and Neurapraxia of lower extremity S84.90XA [facility] [address] 01/24/2025 Reji Doug Tinea unguium B35.1 ; Atherosclerosis of artery of both lower extremities I70.203 ; Pain in right toe(s) M79.674 and Pain in left toe(s) M79.[address] [address] 05/09/2025 Reji Doug Tinea unguium B35.1 ; Atherosclerosis of artery of both lower extremities I70.203 ; Pain in right toe(s) M79.674 ; Pain in left toe(s) M79.675 and Subungual hematoma of toe of right foot, initial encounter S90.221A [facility] [address] [address] 10/14/2024 Reji Camacho [facility] [address] [address] 01/13/2025 Reji Camacho [facility] Encounter Date Diagnosis (ICD Code) Assessment Notes Treatment Notes Treatment Clinical Notes Section Notes 10/14/2024 Tinea unguium (ICD-10 - B35.1) 10/14/2024 Atherosclerosis of artery of both lower extremities (ICD-10 - I70.203) Q7(A), Q8(2B), Q9(1B,2C) 01/24/2025 Tinea unguium (ICD-10 - B35.1) 01/24/2025 Atherosclerosis of artery of both lower extremities (ICD-10 - I70.203) Q7(A), Q8(2B), Q9(1B,2C) 05/09/2025 Tinea unguium (ICD-10 - B35.1) 05/09/2025 Atherosclerosis of artery of both lower extremities (ICD-10 - I70.203) Q7(A), Q8(2B), Q9(1B,2C) 05/09/2025 Pain in right toe(s) (ICD-10 - M79.674) 01/24/2025 Pain in right toe(s) (ICD-10 - M79.674) 10/14/2024 Pain in right toe(s) (ICD-10 - M79.674) 10/14/2024 Pain in left toe(s) (ICD-10 - M79.675) 05/09/2025 Pain in left toe(s) (ICD-10 - M79.675) 01/24/2025 Pain in left toe(s) (ICD-10 - M79.675) 10/14/2024 Neuritis (ICD-10 - M79.2) 10/14/2024 Neuropathy (ICD-10 - G62.9) 05/09/2025 Subungual hematoma of toe of right foot, initial encounter (ICD-10 - S90.221A) 10/14/2024 Left foot pain (ICD-10 - M79.672) 10/14/2024 Right foot pain (ICD-10 - M79.671) 10/14/2024 Neurapraxia of lower extremity (ICD-10 - S84.90XA) Plan Of Treatment Pending Test Test Name Order Date X ray : Foot, left 3V 05/03/2018 81903-FOJYXTL NAIL, 1-5 07/05/2024 81330-XRWAVEN NAIL, 1-5 01/01/2018 73746-ADSKZJL NAIL, 1-5 10/14/2024 76417-NALDVNA NAIL, 1-01/24/2025 98329-YDDRGML NAIL, 1-05/09/2025 38738-KXBS SKIN LESIONS, OVER 4 05/09/20 25 29321-SMJO SKIN LESIONS, OVER 4 01/25/20 25 19056-ROBQ SKIN LESIONS, OVER 4 10/15/19 25 48697-QQMO SKIN LESIONS, OVER 4 07/05/20 24 B1358-XLDDQACM DYSTROPHIC NAILS ANY # Z1048-LLNTXIOE DYSTROPHIC NAILS ANY # L3882-LNCJDVOO DYSTROPHIC NAILS ANY # U1703-RVQRRHZE DYSTROPHIC NAILS ANY # 75856-Xoborujfq, Toes 05/03/2018 Next Appt Details Provider Name:Reji Camacho , 08/29/2025 10:00:00 AM, [address] [place], [address], Insurance Providers Payer Name Payer Address Payer Phone Subscriber Number Group Number Insured Name Patient Relationship to Insured Coverage Start Date Coverage End Date [facility] [address] [place] [address] [id number] Graciela Hood Self - patient is the insured Medical (General) History Medical History History ICD Code Arthritis Back,Hip,and Knee pain Crohns disease Headaches/Migraines High blood pressure Sciatica chronic sinusitis Mumps Measles Chicken pox covid-19 Surgical History Surgery Date(Month/Year) hernia 2007 section
== END 2025-07-27 11:01 | disposition home or self-care (01) ==
LOC: HO.MAMMO 11:00
PROVIDERS: PCP Nurse Practitioner Family; Visit Provider Nurse Practitioner Family
DX: R92.1 Mammographic calcification found on diagnostic imaging of breast (principal)
CPT/HCPCS: 77062; 77066

== ENCOUNTER → 2025-07-27 11:00 | Outpatient (BNV) | payer OTHER, SELFPAY | PROVIDERS: PCP Nurse Practitioner Family; Visit Provider Internal Medicine | DX: R92.8 Other abnormal and inconclusive findings on diagnostic imaging of breast (principal) | CPT/HCPCS: 77062; 77066 ==